=== PATIENT | female | born 1965 | race African-American/Black ===

== ENCOUNTER 2018-04-30 14:54 | Emergency (ER) | payer SELFPAY ==
[2018-04-30 15:12] VITALS: BP 130/78; PULSE 92; TEMP 97.3; BMI 30.2
--- NOTE | 2018-04-30 15:44 | PDOC ---
History of Present Illness - General Chief Complaint: Pain Stated Complaint: LT LEG PAIN Time Seen by Provider: 04/30/18 15:19 History Source: Patient Exam Limitations: No Limitations Past History - Past Medical History Allergies/Adverse Reactions: Allergies Allergy/AdvReac Type Severity Reaction Status Date / Time No Known Allergies Allergy Verified 08/08/13 19:55 Home Medications: Ambulatory Orders Amlodipine/Valsartan [Exforge 10-160 mg Tablet] 1 tab PO DAILY 08/08/13 Aspirin Coated [Ecotrin -] 81 mg PO DAILY #100 tablet.ec 08/09/13 Bmp, Esr 08/09/13 COPD: No HTN: Yes - Immunization History Immunization Up to Date: Yes - Suicide/Smoking/Psychosocial Hx Smoking Status: No Smoking History: Never smoked Have you smoked in the past 12 months: Yes Number of Cigarettes Smoked Daily: 4 'Breaking Loose' booklet given: 08/08/13 Hx Alcohol Use: No Drug/Substance Use Hx: No Substance Use Type: None Hx Substance Use Treatment: No *Physical Exam - Vital Signs Last Vital Signs Temp Pulse Resp BP Pulse Ox 97.3 F L 92 H 17 130/78 100 04/30/18 15:08 04/30/18 15:08 04/30/18 15:08 04/30/18 15:08 04/30/18 15:08 - Physical Exam General Appearance: No: Apparent Distress Respiratory/Chest: positive: Lungs Clear, Normal Breath Sounds. negative: Respiratory Distress Cardiovascular: positive: Regular Rhythm, Regular Rate, S1, S2. negative: Murmur Gastrointestinal/Abdominal: positive: Normal Bowel Sounds, Soft. negative: Tender, Distended, Guarding, Rebound Extremity: positive: Normal Range of Motion (FROM of BLE), Other (LLE slightly bigger than RLE, no calf tenderness, 2+ pulses BLE, normal color). negative: Coldness, Pedal Edema, Calf Tenderness, Erythema Integumentary: positive: Normal Color Neurologic: positive: Alert, Normal Mood/Affect Moderate Sedation - Procedure Monitoring Vital Signs: Procedure Monitoring Vital Signs Temperature 97.3 F L 04/30/18 15:08 Pulse Rate 92 H 04/30/18 15:08 Respiratory Rate 17 04/30/18 15:08 Blood Pressure 130/78 04/30/18 15:08 O2 Sat by Pulse Oximetry (%) 100 04/30/18 15:08 ED Treatment Course - RADIOLOGY Radiology Studies Ordered: Category Date Time Status DUPLEX VASCUL US-1 LEG [US] Stat Ultrasound 04/30/18 15:35 Ordered Medical Decision Making - Medical Decision Making 52 y/o F with hx of HTN, DM presents with LLE pain x 3 months. Mentions it is more discomfort than pain; discomfort is mainly behind L knee and along the estes. States saw her PCP for this prior and around 3 months ago, he did bedside ultrasound of leg which was normal and told patient it was likely arthritis. Denies fever, sob, cp, abd pain, n/v, recent travel/surgeries. Denies smoking use. Consider DVT? Possibly kelly's cyst? (nothing obvious palpable on exam); not suspicious for PAD given good pulses Plan: LLE doppler 04/30/18 15:39 LLE US negative for any acute findings Report given to patient stable for dc 04/30/18 16:21 *DC/Admit/Observation/Transfer Diagnosis at time of Disposition: Left leg pain - Discharge Dispostion Disposition: HOME Condition at time of disposition: Stable Decision to Admit order: No - Referrals Referrals: Dustin Copeland MD [Primary Care Provider] - 2 Days - Patient Instructions Printed Discharge Instructions: DI for Leg Pain Additional Instructions: Thank you for choosing [facility]. It was a pleasure taking care of you. Your ultrasound of your leg was normal. Please follow-up with your doctor for further evaluation Return to the Emergency Department if your symptoms worsen or persist or have other concerning symptoms. - Post Discharge Activity
== END 2018-04-30 16:25 | disposition home or self-care (01) ==
LOC: JERFT 14:54
DX: M79.605 Pain in left leg (principal); I10 Essential (primary) hypertension
CPT/HCPCS: 93971-TC; 99281-25

== ENCOUNTER 2022-05-13 10:25 | Observation (INO) | payer OTHER ==
[2022-05-13 10:43] VITALS: BMI 38.3
[2022-05-13] MEDS ORDERED: ASPIRIN 81 MG CHEWABLE TABLETS PO ONE (11:17)
[2022-05-13] MEDS ORDERED: ASPIRIN COATED 81 MG TABLET.EC ONE (11:40)
[2022-05-13 13:21] LABS: BASO % 0.4 % (0-2.0); HEMATOCRIT 39.5 % (32.4-45.2); HEMOGLOBIN 13.4 GM/dL (10.7-15.3); LYMPH % 24.5 % (8-40); MCH 29.5 pg (25.7-33.7); MCHC 33.8 g/dl (32.0-36.0); MEAN CELL VOLUME 87.4 fl (80-96); MEAN PLT VOLUME 10.1 fl (7.5-11.1); MONO % 4.1 % (3.8-10.2); PLATELET COUNT 288 10^3/uL (134-434); RBC 4.52 M/mm3 (3.60-5.2); RDW 15.6 % (11.6-15.6); WHITE BLOOD COUNT 6.4 K/mm3 (4.0-10.0)
[2022-05-13 13:40] LABS: CALCIUM 9.9 mg/dL (8.5-10.1)
[2022-05-13 13:41] LABS: BLOOD UREA NITROGEN 16.6 mg/dL (7-18)
[2022-05-13 13:44] LABS: CREATININE 0.8 mg/dL (0.55-1.3)
[2022-05-13 13:45] LABS: BILIRUBIN,TOTAL 0.9 mg/dL (0.2-1)
[2022-05-13] MEDS ORDERED: ACETAMINOPHEN 325 MG TABLET (FP) PO PRN (14:25)
[2022-05-13 18:00] LABS: CALCIUM 9.6 mg/dL (8.5-10.1)
[2022-05-13 18:01] LABS: ALBUMIN 3.5 g/dl (3.4-5.0); BLOOD UREA NITROGEN 17.6 mg/dL (7-18)
[2022-05-13 18:04] LABS: CREATININE 0.9 mg/dL (0.55-1.3)
[2022-05-13 18:05] LABS: BILIRUBIN,TOTAL 0.6 mg/dL (0.2-1)
[2022-05-14 08:15] LABS: HEMATOCRIT 37.3 % (32.4-45.2); HEMOGLOBIN 12.4 GM/dL (10.7-15.3); MCH 29.2 pg (25.7-33.7); MCHC 33.3 g/dl (32.0-36.0); MEAN CELL VOLUME 87.7 fl (80-96); MEAN PLT VOLUME 10.2 fl (7.5-11.1); PLATELET COUNT 245 10^3/uL (134-434); RBC 4.25 M/mm3 (3.60-5.2); RDW 15.1 % (11.6-15.6); WHITE BLOOD COUNT 5.5 K/mm3 (4.0-10.0)
[2022-05-14] MEDS: VALSARTAN 160 MG TABLET PO SCH ×2 (09:26→21:14)
[2022-05-14] MEDS: amLODIPine BESYLATE 10 MG TABLET (FP) PO SCH ×2 (09:26→21:14)
[2022-05-14] MEDS: ASPIRIN 81 MG CHEWABLE TABLETS PO SCH ×2 (09:26→21:14)
[2022-05-14 10:29] LABS: CALCIUM 9.4 mg/dL (8.5-10.1)
[2022-05-14 10:30] LABS: BLOOD UREA NITROGEN 16.5 mg/dL (7-18); MAGNESIUM 2.2 mg/dL (1.8-2.4)
[2022-05-14 10:33] LABS: CREATININE 0.8 mg/dL (0.55-1.3)
[2022-05-14 11:36] LABS: PH,URINE 6.5 (5.0-8.0); URINE APPEARANCE CLEAR; URINE BILIRUBIN NEGATIVE (NEGATIVE); URINE COLOR YELLOW; URINE GLUCOSE (UA) 3+ (NEGATIVE); URINE KETONE NEGATIVE (NEGATIVE); URINE LEUK ESTERASE NEGATIVE (NEGATIVE); URINE NITRITE NEGATIVE (NEGATIVE); URINE PROTEIN NEGATIVE (NEGATIVE)
[2022-05-15 06:47] VITALS: RESP 20
[2022-05-15 08:33] VITALS: BP 104/55; PULSE 87; TEMP 98.2
[2022-05-15] MEDS: VALSARTAN 160 MG TABLET PO SCH (09:15)
[2022-05-15] MEDS: ASPIRIN 81 MG CHEWABLE TABLETS PO SCH (09:15)
[2022-05-15] MEDS: amLODIPine BESYLATE 10 MG TABLET (FP) PO SCH (09:15)
== END 2022-05-15 11:29 | disposition home or self-care (01) ==
LOC: JER 10:25 → INTOOBSV 14:24 → JERBED 14:24 → UNDOADMOB 14:24 → J4W 22:58 → JERBED 22:58 → J4W 05-14 09:49 → JERBED 05-14 09:49
PROVIDERS: ADMIT Family Medicine; ATTEND Family Medicine
DX: R07.9 Chest pain, unspecified (principal); R91.1 Solitary pulmonary nodule; I35.9 Nonrheumatic aortic valve disorder, unspecified; R10.9 Unspecified abdominal pain; E66.01 Morbid (severe) obesity due to excess calories; Z68.38 Body mass index [BMI] 38.0-38.9, adult; I10 Essential (primary) hypertension; E11.9 Type 2 diabetes mellitus without complications; R51.9 Headache, unspecified; Z72.0 Tobacco use
CPT/HCPCS: 36415; 71046-TC-FY; 71275-TC; 76700-TC; 80048; 80053; 80061; 81003; 83036; 83735; 84484; 85025; 85027; 87086; 93005; 93010; 93306-TC; 99285-25; C9803-CS; G0378; Q9967; U0003; U0005

== ENCOUNTER 2023-11-17 18:14 | Emergency (ER) | payer SELFPAY ==
[2023-11-17 18:42] VITALS: BP 117/74; PULSE 99; RESP 20; TEMP 98.2; BMI 35.4
[2023-11-17] MEDS ORDERED: ACETAMINOPHEN INJECTION 100 ML ONE (19:31)
[2023-11-17] MEDS: ACETAMINOPHEN 1000 MG/100 ML BAG IVPB ONE (20:38)
[2023-11-17 20:48] LABS: BASO % 0.4 % (0-2.0); EOS % 1.4 % (0-4.5); HEMATOCRIT 39.8 % (32.4-45.2); HEMOGLOBIN 12.9 GM/dL (10.7-15.3); LYMPH % 34.3 % (8-40); MCH 29.3 pg (25.7-33.7); MCHC 32.5 g/dl (32.0-36.0); MEAN CELL VOLUME 90.2 fl (80-96); NEUT % 58.9 % (42.8-82.8); PLATELET COUNT 254 10^3/uL (134-434); RBC 4.41 M/mm3 (3.60-5.2); RDW 15.1 % (11.6-15.6); WHITE BLOOD COUNT 6.2 K/mm3 (4.0-10.0)
[2023-11-17 21:01] LABS: POTASSIUM 5.4 mmol/L (3.5-5.1)
[2023-11-17 21:03] LABS: ALBUMIN 3.7 g/dl (3.4-5.0); BLOOD UREA NITROGEN 18.2 mg/dL (7-18); CALCIUM 9.5 mg/dL (8.5-10.1)
[2023-11-17 21:06] LABS: CREATININE 0.7 mg/dL (0.55-1.3)
[2023-11-17 21:08] LABS: BILIRUBIN,TOTAL 0.9 mg/dL (0.2-1); TOT PROT 8.6 g/dl (6.4-8.2)
== END 2023-11-18 00:06 | disposition home or self-care (01) ==
LOC: JER 18:14
PROC: 3E033NZ Introduction of Analgesics, Hypnotics, Sedatives into Peripheral Vein, Percutaneous Approach (ICD-10-PCS; principal; 2023-11-17)
DX: R07.9 Chest pain, unspecified (principal); M79.604 Pain in right leg; M79.605 Pain in left leg
CPT/HCPCS: 36415; 71046-TC-FY; 80053; 84484; 85025; 93005; 93010; 99285-25; J0131